=== PATIENT | female | born 1980 | race Asian ===

== ENCOUNTER 2016-10-13 01:13 | Emergency (ER) | payer OTHER ==
[~2016-10-13] VITALS: Ht 160 cm; Wt 129.5 kg
[2016-10-13 01:18] VITALS: Ht 160 cm; Wt 129.5 kg
--- NOTE | 2016-10-13 05:37 | ERD ---
ER Documentation Chief Complaint Date/Time DATE: 10/13/16 TIME: 05:37 Chief Complaint anxiety- facial sensation befor she went to sleep, shaking hands HPI 36 year old female presents with several complaints. She states that she was worried tonight because she began to experience a sensation of temporary numbness over the left side of her neck and face. In addition she has noticed bilateral LE edema in the evenings, she has discussed this with her PCP and he prescribed her a diuretic. She also reports her hands shaking more than usual. All of her complaints have occurred at some point throughout the week, but she denies having these symptoms now. She denies unilateral weakness or numbness in extremities or face currently, she denies slurred speech, loss of memory, CP, SOB, palpitations, ST, trauma, recent illness and fever. ROS All systems reviewed and are negative except as per history of present illness. Allergies Allergies: Coded Allergies: No Known Allergy (Unverified , 10/13/16) PMhx/Soc Medical and Surgical Hx: pt denies Medical Hx, pt denies Surgical Hx History of Surgery: No Anesthesia Reaction: No Hx Neurological Disorder: No Hx Respiratory Disorders: No Hx Cardiac Disorders: No Hx Psychiatric Problems: No Hx Alcohol Use: No Hx Substance Use: No Hx Tobacco Use: No Smoking Status: Never smoker Physical Exam Vitals Physical Exam GENERAL: Non-toxic. No apparent signs of distress. Speaking in full sentences, coherent. HEENT: Atraumatic.Conjunctiva normal, no injection or discharge. Bilateral eyes are PERRL EOM intact. No eyelid or lower eyelid swelling noted. Ears: Right TM is erythematous and dull to light reflex. Left TM is normal, no erythema or bulging. No ear canal swelling. No ear discharge. No tenderness to palpation of tragus. Nose: no nasal discharge. Throat: Oropharynx normal. Tongue pink and moist. No tonsillar swelling or tonsillar exudates. No lymphadenopathy. LUNGS: Clear to auscultation. No accessory muscle use. No wheezing, no crackles. No signs or symptoms of respiratory distress. HEART: Regular rate and rhythm. No murmurs, clicks, rubs or gallops. ABDOMEN: Soft, nontender and nondistended. Bowel sounds positive. No rebound or guarding. No gross peritoneal signs. No Kapadia or McBurney point tenderness. No gross masses. : there are no lesions over the labia or the vaginal canal, no discharge within the canal, there is mild white discharge from the cervical os which is closed, the cervix appears enlarged and erythematous with hypopigmented lesions. BACK: No midline tenderness, no costovertebral tenderness. NEURO: The patient moves all 4 extremities with 5/5 strength. 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 No unilateral weakness or deficits, full sensation intact in face, UE, and LE. Normal gait. Cranial nerves are grossly intact. Normal mental status for age. Good muscle tone. SKIN: There is no apparent rash, petechiae, or erythema. Mild 1+ bilateral pitting edema in LE, nontender. Good skin turgor. Procedures/MDM Patient appeared anxious during exam and discussed several complaints, none of which she has currently. She stated feeling a sensation of numbness over her left cheek that radiated into her face. On exam she has no neuro deficits, no unilateral facial weakness or droop, her oropharynx was normal with no swelling , full sensation intact in face and extremities. To reassure the patient I ordered an EKG, which showed no ST elevation, normal axis, no signs of acute ischemia, and normal rate. I have low suspicion for CVA, TIA, Ma's Palsy, and [place]. The patient also complained of bilateral LE edema, which is worse with at night. I explained that this condition is chronic. She should avoid high sodium foods and keep legs elevated at home to reduce swelling. She has already seen her PCP for this issue is currently on a diuretic. On exam she has mild bilateral pitting edema, no erythema, full ROM, and non-tender. I have low suspicion for limb ischemia, cellulitis, DVT, abscess, and sepsis. The patient denies any pain. After I reassured her that these symptoms may be due to stress and anxiety and are not likely to represent a medical emergency, she said she had some relief in hearing this. She states her main reason for coming to ER was because she was worried about all the different symptoms she's been having lately. I explained that the best way to have these problems evaluated is to continue to follow-up with her PCP, because she does not currently have the symptoms of facial numbness and shaking hands and it is difficult to assess or find a cause now. Patient is stable for discharge and outpatient management. Advised to follow-up with PCP in 1-2 days. Departure Diagnosis: Primary Impression: Facial numbness Additional Impression: Bilateral lower extremity edema Condition: Good Maryann Maher PA-C Oct 13, 2016 05:37
[2016-10-13 05:55] VITALS: BP 127/65; PULSE 68; RESP 18; TEMP 98.2
== END 2016-10-13 05:42 | disposition home or self-care (01) ==
LOC: FTE 01:13
DX: F41.9 Anxiety disorder, unspecified (principal); R22.43 Localized swelling, mass and lump, lower limb, bilateral
CPT/HCPCS: 99282